=== PATIENT | female | born 1970 | race Caucasian/White ===

== ENCOUNTER → 2017-03-22 16:24 | Outpatient (CLI) | payer BC ==
[2011-09-20 06:29] VITALS: BMI 21.6
[~2017-03-22 16:24] MED LIST: DULCOLAX STOOL100 MG PO; ESTRACE2 MG; FEXOFENADINE H180 MG PO; MOBIC7.5 MG PO; PERCOCET 5-3251 TAB PO; PROTONIX40 MG PO; VITAMIN B-1250 MCG PO; VITAMIN D31000 UNIT PO
[2017-05-17 06:26] VITALS: BMI 22.7
== END | disposition home or self-care (01) ==
LOC: D.RAD 16:24
DX: J32.9 Chronic sinusitis, unspecified (principal)

== ENCOUNTER 2017-05-17 05:53 | Day surgery (SDC) | payer BC ==
[2017-05-16 16:04] LABS: HEMATOCRIT 39.6 % (36.0-48.0); HEMOGLOBIN 13.3 g/dL (12-16); MCH 30.1 pg (26.0-34.0); MCHC 33.6 g/dL (31.0-37.0); MCV 89.6 fL (80.0-100.0); MEAN PLATELET VOLUME 9.7 fL (7.4-10.4); RBC 4.42 10x6/uL (4.00-5.40); RDW 13.5 % (11.5-14.5); WBC 7.6 10x3/uL (4.8-10.8)
[~2017-05-17] VITALS: Ht 162.6 cm; Wt 59.9 kg
--- NOTE | ~2017-05-17 | OP ---
PATIENT NAME: SHITAL RODRIGUEZ MEDICAL RECORD: [id number] :68 LOCATION:[facility] ADMISSION DATE: SURGEON: ARCADIO BRIGHT DO DATE OF OPERATION: 05/17/2017 PROCEDURE PERFORMED: Right shoulder arthroscopy with biceps tenodesis, subacromial decompression, and distal clavicle excision. PREOPERATIVE DIAGNOSES: SLAP tear, right shoulder as well as subacromial impingement and bursitis and acromioclavicular joint arthritis. INDICATIONS: Ms. Rodriguez is a 46-year-old female who presented to my office with an MRI indicating a SLAP tear. She had tried nonoperative treatment with this and was tired of dealing with the pain. She has been dealing with it for quite some time and wanted something done surgically. She tried conservative measures and they did not work. She was informed of the risks and benefits of the procedure and verbally consented to the procedure as well as pre and postop protocols. SURGEON: Arcadio Bright DO COMPLICATIONS: None. BLOOD LOSS: Minimal. DESCRIPTION OF PROCEDURE: The patient was given a block in the preoperative area by anesthesia in the right shoulder and then taken to the operative suite, laid in the left lateral decubitus position and well padded with axillary roll. A craft bag was inflated when she was in the position around her. She was then sedated and intubated, given clindamycin preoperatively. A timeout was performed, everyone was in agreement as to the correct side, site, and patient. The right shoulder was then prepped and draped in sterile fashion and the procedure commenced with an 18-gauge spinal needle entering the shoulder joint itself being insufflated with 60 cc of normal saline. After this was done, the posterior portal was established with needle blade scalpel and the trocar was entered into the shoulder joint itself and the camera was entered. The anterior portal was then established. The shoulder joint itself was inspected. The cartilage appeared to be very good and intact as well as the supra and infraspinatus tendons and the subscapularis tendon. The inferior pouch was cleared of any debris of the shoulder. The bicep tendon was intact; however, there was a significant type 2 SLAP tear noted as was noted on the MRI. The burner was then brought into the shoulder through the anterior portal and the biceps was cut and then the labrum. The fraying of the labrum from the SLAP tear was also ablated back to a stable point. I then entered the subacromial space and the lateral portal was established first with an 18-gauge needle and then an 11-blade scalpel and the subacromial decompression was done. There was significant amount of bursitis noted in the shoulder. This was removed with the shaver and then the burner was used to clean off the acromion as well as at the AC joint. AC joint was cleaned off and noted to have a large spur off the inferior portion of the distal clavicle. The shaver was then entered in and due to the softer bone, I just used the shaver for the decompression to remove the spur on the acromion as well as the distal clavicle. The AC joint was opened up to 7 mm and rotator cuff was inspected at that time on the bursal side, which no tears were seen at all. The camera and everything was withdrawn from the subacromial space at that time and came around to the front of the patient and OPERATIVE REPORT [id number] SHITAL RODRIGUEZ made an incision in the upper arm just distal to the pec insertion and then careful dissection was made down to the biceps tendon itself to the humerus. Biceps tendon had been cut, was pulled out through the wound with a 90-degree hemostat, then the Allis clamp was used to hold the tendon which was whipstitched and the unicortical hole was drilled in the humerus just distal to the bicipital groove and the button had been placed on the whipstitch suture and then the button was put down in the unicortical hole and cinched down. This suture was used to cinch the tendon down to the humerus and then a free needle was used to go through the bicep tendon and this was sutured down. The excess biceps tendon was trimmed off at that time as well. The suture was cut after it had been tied. The wound was then thoroughly irrigated and closed on the skin with 3-0 inverted interrupted stitch and then a 4-0 Monocryl was ran subcuticularly on the skin and then Dermabond was placed over that. The 3 portal sites anterior laterally and posteriorly were closed with simple interrupted 4-0 Monocryl and then Dermabond was placed on top. Adaptic, 4 x 4s, and ABD were then placed over the shoulder and the patient was awakened and taken to the recovery in stable condition with a sling on her arm. TRANSINT:[id number] Voice Confirmation ID: [id number] DOCUMENT ID: [id number] ARCADIO BRIGHT DO at 1516 CC: [id number] DICTATION DATE: 05/17/17 1009 PL[employer] ASSOCIATE: 05/17/17 1122 [facility] 05/17/17 [place] [id number]
[~2017-05-17 05:53] MED LIST changes: -PERCOCET 5-3251 TAB PO
[2017-05-17 06:26] VITALS: BP 120/75; Ht 162.6 cm; Wt 59.9 kg
[2017-05-17] MEDS ORDERED: PERCOCET 5-3251 TAB PO (10:02)
== END 2017-05-17 12:50 | disposition home or self-care (01) ==
LOC: D.OPS 05:53 → D.PAN 07:30 → D.OPS 07:45
PROVIDERS: Anesthesiology
DX: S43.431A Superior glenoid labrum lesion of right shoulder, initial encounter (principal); M75.41 Impingement syndrome of right shoulder; M75.51 Bursitis of right shoulder; M13.811 Other specified arthritis, right shoulder; Z01.812 Encounter for preprocedural laboratory examination

== ENCOUNTER → 2017-06-26 12:13 | Outpatient (CLI) | payer BC ==
[2017-05-17 06:26] VITALS: BMI 22.7
[~2017-06-26 12:13] MED LIST changes: +PERCOCET 5-3251 TAB PO
== END | disposition home or self-care (01) ==
LOC: D.OPS 12:13 → D.RAD 13:00
DX: M75.01 Adhesive capsulitis of right shoulder (principal); Z01.812 Encounter for preprocedural laboratory examination